=== PATIENT | male | born 1950 | race Caucasian/White ===

== ENCOUNTER 2016-09-29 09:16 | Day surgery (SDC) | payer OTHER ==
--- NOTE | 2016-09-14 20:25 | CONS ---
DATE OF ADMISSION: 07/04/2016 DATE OF CONSULTATION: Dear Dr. Neumann: I thank you very much for this kind referral. HISTORY OF PRESENT ILLNESS: Mr. Silver Arboleda is a 66-year-old male patient who has been r eferred to me for further evaluation of change in the bowel habit with chronic diarrhea. Patient al so complains of lower abdominal pain. There is no past history of inflammatory bowel disease or col on neoplasm. The patient never had screening colonoscopy. His appetite has been good and he is not losing any weight. He does not have any upper abdominal pain, nausea or vomiting. There is no his tory of peptic ulcer disease. He has been taking baby aspirin a day. There is no history of gallst ones. He does not have any fever, chills or jaundice. There is no history of liver disease. He is hypertensive. He is not a diabetic. He does not have any heart disease or lung problem. There is no history of kidney disease. SOCIAL HISTORY: He is a nonsmoker. He does not abuse alcohol. FAMILY HISTORY: Particular for the history of colon cancer in his dad. ALLERGIES: THERE IS NO HISTORY OF SIGNIFICANT DRUG ALLERGY. MEDICATIONS: 1. Captopril. 2. Metoprolol. 3. Hydrochlorothiazide. 4. Isosorbide mononitrate. 5. Aspirin 81 mg. PHYSICAL EXAMINATION: VITAL SIGNS: He is 5 feet 9 inches tall and he weighs 207 pounds. HEART: Examination of the heart reveals normal first and second heart sounds. LUNGS: Clear. ABDOMEN: Soft without any distention. Liver and spleen are not palpable. There are no masses. Th ere is no focal tenderness. Normal bowel sounds are heard. CENTRAL NERVOUS SYSTEM: Does not reveal any focal neurological deficit. IMPRESSION: 1. Change in the bowel habit with chronic diarrhea. 2. Lower abdominal pain. 3. The patient never had screening colonoscopy. 4. Patient's dad had colon cancer. 5. Hypertension. 6. The patient is on baby aspirin a day. PLAN: 1. Stool for WBCs, ova and parasites and Clostridium difficile toxin. 2. Screening colonoscopy. Because of the obesity with a short thick neck, he needs monitored anesthesia care for the procedure . The procedure and possible complications are well explained to the patient and his daughter. They u nderstand and consent to the procedure. I thank you once again. With warmest personal regards, Dictated By: MYRA CASTRO/SINCERE Conf#: [id number] DID#: [id number] CC: RICK NEUMANN MD;*End*
[~2016-09-29] VITALS: Ht 175.3 cm; Wt 93.2 kg
[2016-09-29] MEDS ORDERED: METOPROLOL (10:03)
[2016-09-29] MEDS ORDERED: ASPIRIN (10:03)
[2016-09-29] MEDS ORDERED: CAPTOPRIL (10:03)
[2016-09-29] MEDS ORDERED: HCTZ (10:03)
[2016-09-29] MEDS ORDERED: ISOSORBIDE (10:03)
[2016-09-29 10:05] VITALS: Ht 175.3 cm; Wt 93.2 kg
[2016-09-29] MEDS ORDERED: FENTAnyl 50 MCG/ML VIAL ONE (10:21)
[2016-09-29] MEDS ORDERED: PROPOFOL 20 ML ONE (10:21)
[2016-09-29 10:37] VITALS: BP 123/62; PULSE 63; RESP 18
[2016-09-29 11:47] VITALS: BP 119/69; PULSE 61; RESP 12
--- NOTE | 2016-09-29 12:28 | GILP ---
DATE OF PROCEDURE: 09/29/2016 NAME OF PROCEDURE: Colonoscopy, biopsy and polypectomy. SURGEON: [place] Quinteros MD PREOPERATIVE DIAGNOSES: 1. Chronic diarrhea. 2. Screening colonoscopy. POSTOPERATIVE DIAGNOSES 1. Colonoscopy all the way to the cecum. 2. Cecal polyp was removed using the snare and electrocautery. 3. Flat polyp in the transverse colon and multiple biopsies were taken for histopathology. 4. Random biopsies were taken to rule out microscopic colitis. 5. Internal hemorrhoids. INDICATION FOR THE PROCEDURE: Mr. Silver Arboleda is a 66-year-old male patient who has log driver denise diarrhea. He also never had a screening colonoscopy. The patient was scheduled for colonoscopy for further evaluation. The procedure and possible complications were well explained to the patient, he understood and conse nted to the procedure. DESCRIPTION OF PROCEDURE: Under the influence of anesthesia, the colonoscope was carefully introduc ed in the rectum and under direct vision, it was advanced all the way to the cecum. FINDINGS: The patient had a cecal polyp and it was removed using the snare and electrocautery. The patient had a flat polyp in the transverse colon and it was removed using the biopsy forceps with m ultiple biopsies Random biopsies were taken to rule out microscopic colitis. The patient was noted to have internal hemorrhoids. He tolerated the procedure very well and there was no complication from the procedure. At the end o f the procedure, he was awake with stable vital signs and he was discharged home to the care of his family. IMPRESSION: Please see postoperative diagnoses. PLAN: 1. Await histopathology report. 2. Bentyl 10 mg p.o. t.i.d. p.r.n. for diarrhea. 3. Because of the flat nature of the polyp, the patient will need repeat screening colonoscopy in 3 years. Dictated By: [place] CASTRO/SINCERE Conf#: [id number] DID#: [id number] CC: [place] QUINTEROS MD;*End*
== END 2016-09-29 12:58 | disposition home or self-care (01) ==
LOC: GIL 09:16
PROVIDERS: ATTEND Internal Medicine Gastroenterology
DX: Z12.11 Encounter for screening for malignant neoplasm of colon (principal); D12.0 Benign neoplasm of cecum; D12.3 Benign neoplasm of transverse colon; K64.8 Other hemorrhoids; I10 Essential (primary) hypertension
CPT/HCPCS: 45380; 88305; J3010; Z7610